=== PATIENT | male | born 1975 | race Caucasian/White ===

== ENCOUNTER 2019-03-14 11:36 | Emergency (ER) | payer OTHER, SELFPAY ==
[~2019-03-14] VITALS: Ht 175.3 cm; Wt 101.0 kg
[~2019-03-14 11:36] MED LIST: CIPR500T4 OR; No Historical Meds
[2019-03-14 12:28] LABS: BASO # 0.1 10^3/uL (0.0-0.2); BASO % 0.6 % (0.0-1.0); EOS # 0.1 10^3/uL (0.0-0.5); EOS % 1.1 % (0.0-3.0); HEMATOCRIT 48.5 % (42.0-52.0); HEMOGLOBIN 16.4 g/dl (13.5-17.5); LYMPH # 1.7 10^3/uL (1.5-5.0); LYMPH % 20.9 % (24.0-44.0); MEAN CORPUSCULAR HEMOGLOBIN 29.7 pg (27.0-33.0); MEAN CORPUSCULAR HGB CONC 33.8 g/dl (32.0-36.5); MEAN CORPUSCULAR VOLUME 87.9 fl (80.0-96.0); MONO # 0.8 10^3/uL (0.0-0.8); MONO % 9.6 % (0.0-5.0); NEUTROPHILS # 5.4 10^3/uL (1.5-8.5); NEUTROPHILS % 67.2 % (36.0-66.0); PLATELET COUNT, AUTOMATED 187 10^3/uL (150-450); RED BLOOD COUNT 5.52 10^6/uL (4.30-6.10); WHITE BLOOD COUNT 8.1 10^3/uL (4.0-10.0)
[2019-03-14] MEDS ORDERED: NS 1,000 ML IV ONE (12:30)
[2019-03-14] MEDS ORDERED: ONDANSETRON 4MG/2ML VIAL (J2405) IV ONE (12:30)
[2019-03-14] MEDS ORDERED: MORPHINE 4 MG/ML 1ML VIAL/SYRINGE (J2270) IV ONE (12:30)
[2019-03-14 12:31] LABS: BILIRUBIN, URINE MANUAL NEGATIVE (NEGATIVE); GLUCOSE, URINE (UA) MANUAL NEGATIVE (NEGATIVE); KETONE, URINE MANUAL NEGATIVE (NEGATIVE); UROBILINOGEN, URINE MANUAL NORMAL (NORMAL)
[2019-03-14 12:38] LABS: SQUAMOUS EPITHELIAL CELL URINE MOD AMOUNT /hpf (SMALL AMT); TRANSITIONAL EPI CELLS, URINE SMALL AMOUNT /hpf
[2019-03-14 12:39] LABS: BACTERIA, URINE SMALL AMOUNT; HYALINE CAST, URINE NONE SEEN /lpf (0-1); MUCUS, URINE MOD AMOUNT (NEGATIVE)
[2019-03-14] MEDS ORDERED: ISOVUE-370 76% 100ML VIAL (Q9967) As Ordered ONE (12:55)
[2019-03-14 12:56] LABS: ALBUMIN 3.9 GM/DL (3.2-5.2); ALT/SGPT 30 U/L (12-78); BILIRUBIN,DIRECT 0.3 MG/DL (0.0-0.2); BILIRUBIN,TOTAL 0.9 MG/DL (0.2-1.0); CK-MB VALUE MASS < 1.0 NG/ML (<3.6); CPK CREATINE PHOSPHOKINASE 111 U/L (39-308); LIPASE 104 U/L (73-393); TOTAL PROTEIN 7.3 GM/DL (6.4-8.2); TROPONIN I < 0.02 NG/ML (< 0.10)
--- NOTE | 2019-03-14 13:24 | REP ---
Clinical: Upper abdominal pain. Technique: Axial contrast enhanced images from the lung bases to the pubic symphysis using 100 ml Isovue 370 intravenous contrast material with coronal and sagittal re-formations. Findings: Mucosal thickening involving long segments of small bowel with perienteric inflammatory stranding and small amount of free fluid extending into the pelvis is consistent with acute infectious/inflammatory enteritis versus inflammatory bowel disease. No bowel obstruction. No free air to suggest perforation. No drainable collection/abscess. Large bowel is grossly unremarkable. Liver, spleen, pancreas, gallbladder, bilateral adrenal glands and kidneys are normal. Small fat containing periumbilical hernia. Pelvis demonstrates normal bladder and age appropriate prostate/seminal vesicles. Abdominal aorta without aneurysm or dissection. Musculoskeletal structures are intact. Impression: 1. Infectious/inflammatory enteritis versus inflammatory bowel disease. No obstruction. No perforation. No drainable collection/abscess. Electronically Signed by Sha Hopkins MD 03/14/2019 01:15 P
[2019-03-14 13:33] VITALS: BP 149/96
[2019-03-14] MEDS ORDERED: DICY20TA PO (13:58)
--- NOTE | 2019-03-14 16:30 | ECGEPIP ---
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
== END 2019-03-14 14:16 | disposition home or self-care (01) ==
LOC: M ED 11:36
DX: K52.9 Noninfective gastroenteritis and colitis, unspecified (principal); Z91.030 Bee allergy status
CPT/HCPCS: 74177; 80047; 80076; 81000; 82550; 82553; 83605; 83690; 84484; 85025; 93005; 96361; 96374; 96375; 99284; J2270; J2405; Q9967

== ENCOUNTER 2020-08-04 12:14 | Emergency (ER) | payer OTHER, SELFPAY ==
[~2020-08-04] VITALS: Ht 175.3 cm; Wt 101.5 kg
[~2020-08-04 12:14] MED LIST changes: +DICY20TA3 PO
--- NOTE | 2020-08-04 12:36 | REP ---
INDICATION: CHEST PAIN COMPARISON: 06/07/2011 TECHNIQUE: Portable AP view of the chest FINDINGS: The mediastinum and cardiac silhouette are stable and within normal limits for portable technique. The lung bradley are clear without acute consolidation, effusion, or pneumothorax. Skeletal structures are intact. IMPRESSION: No acute cardiopulmonary process appreciated. <Electronically signed by Sha Hopkins > 08/04/20 [id number]
[2020-08-04 12:49] LABS: BASO # 0.1 10^3/uL (0.0-0.2); BASO % 0.9 % (0.0-1.0); EOS % 0.3 % (0.0-3.0); HEMATOCRIT 45.9 % (42.0-52.0); HEMOGLOBIN 15.8 g/dl (13.5-17.5); LYMPH # 1.5 10^3/uL (1.5-5.0); LYMPH % 22.7 % (24.0-44.0); MEAN CORPUSCULAR HEMOGLOBIN 30.9 pg (27.0-33.0); MEAN CORPUSCULAR HGB CONC 34.4 g/dl (32.0-36.5); MEAN CORPUSCULAR VOLUME 89.8 fl (80.0-96.0); MONO # 0.5 10^3/uL (0.0-0.8); MONO % 8.5 % (2.0-8.0); NEUTROPHILS # 4.3 10^3/uL (1.5-8.5); NEUTROPHILS % 67.1 % (36.0-66.0); PLATELET COUNT, AUTOMATED 189 10^3/uL (150-450); RED BLOOD COUNT 5.11 10^6/uL (4.30-6.10); WHITE BLOOD COUNT 6.4 10^3/uL (4.0-10.0)
[2020-08-04] MEDS ORDERED: NS 1,000 ML IV SCH (12:50)
[2020-08-04] MEDS ORDERED: NITROGLYCERIN 0.4 MG SUBL TABLET SL PRN (12:50)
[2020-08-04] MEDS ORDERED: ASPIRIN 81 MG CHEW TABLET PO ONE (12:50)
[2020-08-04] MEDS ORDERED: LABETALOL 100MG/20ML VIAL IV STA (13:02)
[2020-08-04 13:24] LABS: INR 0.94; PROTHROMBIN TIME 12.7 SECONDS (12.5-14.3)
[2020-08-04 13:25] VITALS: BP 178/121
[2020-08-04 14:29] LABS: ALBUMIN 4.1 GM/DL (3.2-5.2); ALT/SGPT 34 U/L (12-78); BILIRUBIN,DIRECT < 0.1 MG/DL (0.0-0.2); BILIRUBIN,TOTAL 0.5 MG/DL (0.2-1.0); BLOOD UREA NITROGEN 10 MG/DL (7-18); CALCIUM LEVEL 9.2 MG/DL (8.5-10.1); CARBON DIOXIDE LEVEL 28 MEQ/L (21-32); CHLORIDE LEVEL 103 MEQ/L (98-107); CPK CREATINE PHOSPHOKINASE 179 U/L (39-308); CREATININE FOR GFR 0.78 MG/DL (0.70-1.30); GLOMERULAR FILTRATION RATE > 60.0 (>60); GLUCOSE, FASTING 117 MG/DL (70-100); LIPASE 106 U/L (73-393); MB/CK RELATIVE INDEX 0.56 (< OR =4); NT-PRO BNP 28 PG/ML (<125); POTASSIUM SERUM 4.7 MEQ/L (3.5-5.1); SODIUM LEVEL 136 MEQ/L (136-145); THYROID STIMULATING HORMONE 0.484 uIU/ML (0.358-3.740); TOTAL PROTEIN 7.5 GM/DL (6.4-8.2); TROPONIN I < 0.02 NG/ML (< 0.10)
[2020-08-04] MEDS ORDERED: ACETAMINOPHEN 325 MG TAB PO ONE (14:55)
[2020-08-04 17:56] LABS: CK-MB VALUE MASS < 1.0 NG/ML (<3.6); CPK CREATINE PHOSPHOKINASE 120 U/L (39-308); MB/CK RELATIVE INDEX 0.83 (< OR =4); TROPONIN I < 0.02 NG/ML (< 0.10)
[2020-08-04] MEDS ORDERED: LISI10TA22 PO (18:05)
[2020-08-04 18:07] VITALS: BP 164/98
--- NOTE | 2020-08-05 12:54 | ECGEPIP ---
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
--- NOTE | 2020-08-05 12:59 | ECGEPIP ---
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
== END 2020-08-04 18:25 | disposition home or self-care (01) ==
LOC: EDBD 12:14 → M ED 12:14
DX: I10 Essential (primary) hypertension (principal); R07.89 Other chest pain; R00.0 Tachycardia, unspecified; F17.200 Nicotine dependence, unspecified, uncomplicated; Z79.899 Other long term (current) drug therapy; Z91.030 Bee allergy status

== ENCOUNTER 2023-11-26 08:34 | Emergency (ER) | payer OTHER ==
[~2023-11-26] VITALS: Ht 175.3 cm; Wt 90.5 kg
[~2023-11-26 08:34] MED LIST changes: +LISI10TA22 PO
[2023-11-26 13:30] LABS: BASO % 0.5 % (0.0-1.0); EOS # 0.1 10^3/uL (0.0-0.5); EOS % 0.6 % (0.0-3.0); HEMATOCRIT 43.1 % (42.0-52.0); HEMOGLOBIN 14.3 g/dl (13.5-17.5); LYMPH # 1.8 10^3/uL (1.5-5.0); LYMPH % 21.9 % (24.0-44.0); MEAN CORPUSCULAR HGB CONC 33.2 g/dl (32.0-36.5); MEAN CORPUSCULAR VOLUME 90.4 fl (80.0-96.0); MONO # 0.7 10^3/uL (0.0-0.8); MONO % 8.8 % (2.0-8.0); NEUTROPHILS # 5.5 10^3/uL (1.5-8.5); NEUTROPHILS % 67.6 % (36.0-66.0); PLATELET COUNT, AUTOMATED 324 10^3/uL (150-450); RED BLOOD COUNT 4.77 10^6/uL (4.30-6.10); WHITE BLOOD COUNT 8.1 10^3/uL (4.0-10.0)
[2023-11-26] MEDS: KETOROLAC 30 MG/ML 1ML VIAL IV ONE (13:30)
[2023-11-26 13:38] LABS: ERYTHROCYTE SEDIMENTATION RATE 57 mm/hr (0-15)
[2023-11-26 13:46] LABS: BLOOD UREA NITROGEN 9 MG/DL (9-23); CALCIUM LEVEL 9.1 MG/DL (8.5-10.1); CARBON DIOXIDE LEVEL 31 MMOL/L (20-31); CHLORIDE LEVEL 103 MMOL/L (98-107); CREATININE FOR GFR 0.63 MG/DL (0.70-1.30); GLOMERULAR FILTRATION RATE > 60.0 (>60); GLUCOSE, FASTING 126 MG/DL (60-100); POTASSIUM SERUM 4.2 MMOL/L (3.5-5.1); SODIUM LEVEL 135 MMOL/L (136-145)
[2023-11-26] MEDS: cefTRIAXone SOD 1 GM in D5W MINI-BAG PLUS 50 ML IV ONE (14:04)
[2023-11-26] MEDS ORDERED: CEPH500C PO (14:45)
[2023-11-26 14:59] VITALS: BP 192/90; TEMP 98.5; O2SAT 99
== END 2023-11-26 15:01 | disposition home or self-care (01) ==
LOC: M ED 08:34
DX: M70.21 Olecranon bursitis, right elbow (principal); W22.8XXA Striking against or struck by other objects, initial encounter; Y92.9 Unspecified place or not applicable; Y93.89 Activity, other specified; Y99.0 Civilian activity done for income or pay; F17.200 Nicotine dependence, unspecified, uncomplicated
CPT/HCPCS: 71046; 73080; 80048; 83605; 85025; 85652; 86140; 87040; 96365; 96375; 99284; J0696; J1885

== ENCOUNTER 2023-11-29 08:28 | Day surgery (SDC) | payer OTHER ==
[~2023-11-29] VITALS: Ht 177.8 cm; Wt 89.8 kg
[~2023-11-29 08:28] MED LIST changes: +CEPH500C PO
[2023-11-29] MEDS ORDERED: ONDANSETRON 4MG 2ML VIAL As Ordered ONE (08:54)
[2023-11-29] MEDS ORDERED: LIDOCAINE 2% 100MG/5ML SDV (FOR ANES.) As Ordered ONE (08:55)
[2023-11-29] MEDS ORDERED: propofoL 200 MG/20 ML VIAL As Ordered ONE (08:55)
[2023-11-29] MEDS ORDERED: KETOROLAC 60MG 2ML VIAL As Ordered ONE (08:57)
[2023-11-29] MEDS ORDERED: MIDAZOLAM INJ 2MG/2ML VIAL As Ordered ONE (08:58)
[2023-11-29] MEDS ORDERED: fentaNYL 100 MCG/2 ML INJECTION As Ordered ONE (08:59)
[2023-11-29] MEDS ORDERED: LR 1,000 ML IV SCH (09:20)
[2023-11-29] MEDS ORDERED: ACETAMINOPHEN 1000MG 100ML IV BAG As Ordered ONE (09:59)
[2023-11-29] MEDS ORDERED: LABETALOL 100MG/20ML VIAL As Ordered ONE (11:13)
[2023-11-29] MEDS: ceFAZolin 2 GM/D5W 50 ML IV BAG As Ordered ONE (11:20)
[2023-11-29] MEDS ORDERED: ROCURONIUM BROMIDE 50MG/5ML VIAL As Ordered ONE (11:24)
[2023-11-29] MEDS ORDERED: SUGAMMADEX SODIUM 500 MG/5 ML VIAL (BRIDION) As Ordered ONE (11:24)
[2023-11-29] MEDS ORDERED: SUCCINYLCHOLINE 100MG/5ML SYRINGE As Ordered ONE (11:24)
[2023-11-29] MEDS: LIDOCAINE 1% SDV 30ML VIAL As Ordered ONE (11:39)
[2023-11-29] MEDS ORDERED: ONDANSETRON 4MG 2ML VIAL IV PRN (11:45)
[2023-11-29] MEDS ORDERED: fentaNYL 100 MCG/2 ML INJECTION IV PRN (11:45)
[2023-11-29] MEDS: HYDROMORPHONE HCL 0.5 MG/ 0.5 ML SYRINGE IV PRN (12:09)
[2023-11-29] MEDS: LABETALOL 100MG/20ML VIAL IV PRN (12:11)
[2023-11-29] MEDS ORDERED: CLIN150C17 PO (12:13)
[2023-11-29] MEDS: hydrALAZINE 20MG/ML 1ML VIAL IV PRN (12:47)
[2023-11-29] MEDS: oxyCODONE 5MG TAB PO PRN (13:03)
[2023-11-29 13:05] VITALS: BP 167/109
[2023-11-29 14:14] VITALS: BP 158/105; TEMP 98.8; O2SAT 98
== END 2023-11-29 14:16 | disposition home or self-care (01) ==
LOC: M SDC 08:28
PROVIDERS: ATTEND Orthopaedic Surgery
DX: M71.121 Other infective bursitis, right elbow (principal); F17.210 Nicotine dependence, cigarettes, uncomplicated; Z86.14 Personal history of Methicillin resistant Staphylococcus aureus infection; Z90.49 Acquired absence of other specified parts of digestive tract; Z91.030 Bee allergy status
CPT/HCPCS: 24105; 87070; 87075; 87077; 87186; 87205; J0131; J0330; J0360; J0665; J0690; J1100; J1170; J1885; J1920; J2250; J2405; J3010